=== PATIENT | female | born 1985 | race Caucasian/White ===

== ENCOUNTER → 2019-04-10 | Outpatient (CLI) | payer MEDICAID | LOC: SP 14:05 | PROVIDERS: ATTEND Internal Medicine Cardiovascular Disease | DX: I73.9 Peripheral vascular disease, unspecified (principal) | CPT/HCPCS: 93922 ==

== ENCOUNTER → 2019-04-23 | Outpatient (CLI) | payer MEDICAID ==
--- NOTE | 2019-04-24 22:21 | XCELERA REPORT ---
[address] [address] Lower Extremity Arterial Evaluation Name: MARION JUNIOR Age: 34 yrs Gender: Female : 1985 Patient Status: Outpatient Patient Location: Study Date: 04/23/2019 11:08 AM Procedure: A color flow and duplex scan of the lower extremity arteries was performed bilaterally with velocity and waveform anaylsis. Reason For Study: PVD Ordering Physician: CHADD EMMANUEL Performed By: Mateus Garcia Measurements and Calculations Right Left QUILTING SUPERVISOR PSV 226.3 211.2 cm/sec Prox PFA PSV -228.7 -184.6cm/sec Prox SFA PSV 16.3 16.3 cm/sec Mid SFA PSV -25.7 cm/sec Dist SFA PSV -39.1 -76.4 cm/sec Prox Pop A PSV 50.5 61.9 cm/sec Prox NAHED PSV 27.7 cm/sec Mid NAHED PSV 13.9 cm/sec Dist NAHED PSV 22.4 -7.9 cm/sec Dist END USER CONSULTANT PSV 23.2 21.8 cm/sec Richard Pedis PSV 21.0 21.4 cm/sec Right Side Arterial Evaluation High normal velocity, mild spectral broadening and biphasic waveforms noted in the Common Femoral artery . High normal velocity, mild spectral broadening and Triphasic waveforms noted in the Deep Femoral artery . Short segment of Femoral with trickle flow, collateral in the proximal Femoral. Monophasic with Spectral broadening,low velocity in the Femoral to Infrageniculate arteries, Ankle Brachial index not obtained. Left Side Arterial Evaluation High normal velocity, mild spectral broadening and triphasic waveforms noted in the Common Femoral artery . Normal velocity, mild spectral broadening and Biphasic waveform noted in the Deep Femoral artery . Monophasic with Spectral broadening,low velocity in the Femoral to Infrageniculate arteries, Retrograde flow in the Anterior Tibial. Ankle Brachial index done previously, 04/10/19. Interpretation Summary Severe hemodynamically significant lesions in the bilateral lower extremities, on duplex imaging, at rest. Complex, multilevel disease, bilaterally. Likely area of occlusion with reconstitution in the right Femoral. : CHADD EMMANUEL > Rios Yang
== END ==
LOC: SP 10:40
PROVIDERS: ATTEND Nurse Practitioner Adult Health
DX: I73.9 Peripheral vascular disease, unspecified (principal)
CPT/HCPCS: 93925